=== PATIENT | female | born 1955 | race Caucasian/White ===

== ENCOUNTER 2019-01-30 10:48 | Emergency (ER) | payer MEDICARE ==
[~2019-01-30] VITALS: Ht 165.1 cm; Wt 66.6 kg
[2019-01-30 11:01] VITALS: BP 137/81
--- NOTE | 2019-01-30 11:20 | NUR ---
PT TO ROOM FROM [facility], PRESENTS TO ED FOR FU UTI TX, STILL HAVING FREQUENCY, NO PAINFUL URINATION. TAKING AZO, STATES IF SHE DOES NOT SHE IS IN BATHROOM EVERY 30 MIN. PT RESTING IN GURNEY WITH CALL LIGHT WITHIN REACH
[2019-01-30 12:26] LABS: MICROSCOPIC AUTO
[2019-01-30 12:34] LABS: CULTURE INDICATED? YES
== END 2019-01-30 13:17 | disposition home or self-care (01) ==
LOC: EDBD 10:48 → ED 12:52
DX: N30.00 Acute cystitis without hematuria (principal)
CPT/HCPCS: 81001; 87086; 99283